=== PATIENT | male | born 1995 | race Caucasian/White ===

== ENCOUNTER 2023-01-22 11:25 | Emergency (ER) | payer OTHER, MEDICAID ==
[~2023-01-22] VITALS: Ht 180.3 cm; Wt 81.8 kg
[~2023-01-22 11:25] MED LIST: NO HOME MEDS
[2023-01-22 11:26] VITALS: BP 149/78
== END 2023-01-22 15:34 | disposition left against medical advice (07) ==
LOC: ER 11:25
DX: M79.89 Other specified soft tissue disorders (principal); R11.2 Nausea with vomiting, unspecified; Z53.21 Procedure and treatment not carried out due to patient leaving prior to being seen by health care provider
CPT/HCPCS: 99281